=== PATIENT | male | born 1940 | race Caucasian/White ===

== ENCOUNTER 2017-08-13 15:25 | Inpatient (IN) | payer MEDICARE, OTHER ==
[~2017-08-13] VITALS: Ht 172.7 cm; Wt 82.0 kg
[~2017-08-13 15:25] MED LIST: CARB-87 PO; CARB-90 PO; HYDR-3972 PO; MULT-1179 PO; OMEP20CA10 PO; ONDA4TAB6 PO; RASA1TAB PO; ROPI1TAB2 PO
[2017-08-13] MEDS ORDERED: normal saline 1000ML IV soln IVB ONE ×2 (15:35)
[2017-08-13] MEDS ORDERED: ondansetron/PF 4mg/2ml inj IV ONE (15:35)
[2017-08-13] MEDS ORDERED: HYDROmorphone 1 mg/ml syringe IV ONE (15:35)
[2017-08-13] MEDS ORDERED: famotidine/PF 10 mg/ml inj IV ONE (15:35)
[2017-08-13] MEDS ORDERED: HYDROmorphone 1 mg/ml syringe IV PRN ×2 (15:35→20:50)
[2017-08-13 16:05] LABS: BASOPHILS % (AUTO) 0.5 % (0-1); EOSINOPHILS # (AUTO) 0.2 X10'3 (0-0.9); EOSINOPHILS % (AUTO) 2.3 % (0-6); HEMATOCRIT 46.4 % (42.0-52.0); HEMOGLOBIN 15.8 g/dl (14.0-17.9); LYMPHOCYTES # (AUTO) 1.6 X10'3 (1.1-4.8); LYMPHOCYTES % (AUTO) 23.8 % (21-51); MEAN CORPUSCULAR HEMOGLOBIN 29.7 PG (27.0-31.0); MEAN CORPUSCULAR VOLUME 87.2 FL (78-98); MEAN PLATELET VOLUME 7.9 FL (7.4-10.4); MONOCYTES # (AUTO) 0.5 X10'3 (0-0.9); NEUTROPHILS # (AUTO) 4.5 X10'3 (1.8-7.7); NEUTROPHILS % (AUTO) 66.4 % (42-75); PLATELET COUNT 211 X10'3 (140-440); RED BLOOD COUNT 5.32 X10'6 (4.70-6.10); RED CELL DISTRIBUTION WIDTH 14.4 % (11.5-14.5); WHITE BLOOD COUNT 6.8 X10'3 (4.5-11.0)
[2017-08-13 16:12] LABS: PARTIAL THROMBOPLASTIN TIME 27 SECONDS (22-32)
[2017-08-13 16:13] LABS: ALANINE AMINOTRANSFERASE 34 U/L (12-78); ALBUMIN 3.8 G/DL (3.4-5.0); ALKALINE PHOSPHATASE 106 IU/L (46-116); ANION GAP 10 (8-16); ASPARTATE AMINO TRANSFERASE 87 U/L (10-37); BILIRUBIN,TOTAL 0.9 MG/DL (0.1-1.0); BLOOD UREA NITROGEN 15 MG/DL (7-18); BUN/CREATININE RATIO 11.5 (5.4-32.0); CALCIUM 9.2 MG/DL (8.5-10.1); CHLORIDE 100 MMOL/L (99-107); GLUCOSE 109 MG/DL (70-104); LIPASE 160 U/L (73-393); POTASSIUM 3.6 MMOL/L (3.5-5.1); SODIUM 137 MMOL/L (135-145); TOTAL CARBON DIOXIDE 26.8 MMOL/L (24-32); TOTAL PROTEIN 7.7 G/DL (6.4-8.2); eGFR 54 ML/MIN
[2017-08-13 17:00] LABS: CLARITY,URINE CLEAR (Clear); COLOR,URINE YELLOW (Yellow); GLUCOSE, URINE NEGATIVE (Neg); KETONES,URINE NEGATIVE (Neg); LEUKOCYTE ESTERASE ,URINE NEGATIVE (Neg); NITRITES, URINE NEGATIVE (Neg); OCCULT BLOOD,URINE NEGATIVE (Neg); PROTEIN,URINE NEGATIVE (Neg); UROBILINOGEN,URINE 0.2 E.U/dL (0.2-1.0)
[2017-08-13 17:01] LABS: UA COLLECTION TYPE URINAL
[2017-08-13] MEDS ORDERED: nitroGLYCERIN 0.4mg/hour patch TD ONE (17:35)
[2017-08-13] MEDS ORDERED: CLON-528 PO (19:16)
[2017-08-13] MEDS ORDERED: SERT25TA PO (19:16)
[2017-08-13] MEDS ORDERED: ondansetron/PF 4mg/2ml inj IV PRN (20:50)
[2017-08-13] MEDS ORDERED: magnesium 2GM in 50ml NS 50 ML IV PRN (20:50)
[2017-08-13] MEDS ORDERED: potassium Cl 40MEQ/NS 500ml 500 ML IV PRN ×2 (20:50)
[2017-08-13] MEDS ORDERED: potassium Cl 20 mEq SR tablet PO PRN ×2 (20:50)
[2017-08-13] MEDS ORDERED: mag hydrox/Alum hydrox/simeth 30ml oral suspension PO PRN (20:50)
[2017-08-13] MEDS ORDERED: magnesium Cl slow-release 64mg tablet PO PRN (20:50)
[2017-08-13] MEDS ORDERED: magnesium 4gm in 100ml NS 100 ML IV PRN (20:50)
[2017-08-13] MEDS ORDERED: acetaminophen 325mg tablet PO PRN (20:50)
[2017-08-13] MEDS ORDERED: magnesium hydroxide 30ml (MOM) UD suspension PO PRN (20:50)
[2017-08-13] MEDS: carbidoba-levodopa 25-100mg tablet PO SCH (21:18)
[2017-08-13 21:30] VITALS: BP 111/65
[2017-08-13] MEDS: normal saline 1000ml 1,000 ML IV SCH (21:39)
[2017-08-14] VITALS: BP 119/71
[2017-08-14 06:27] LABS: BASOPHILS % (AUTO) 0.3 % (0-1); EOSINOPHILS # (AUTO) 0.2 X10'3 (0-0.9); EOSINOPHILS % (AUTO) 3.4 % (0-6); HEMATOCRIT 38.4 % (42.0-52.0); HEMOGLOBIN 13.5 g/dl (14.0-17.9); LYMPHOCYTES # (AUTO) 1.1 X10'3 (1.1-4.8); LYMPHOCYTES % (AUTO) 15.8 % (21-51); MEAN CORPUSCULAR HEMOGLOBIN 30.5 PG (27.0-31.0); MEAN CORPUSCULAR HGB CONC 35.2 % (33.0-36.5); MEAN CORPUSCULAR VOLUME 86.7 FL (78-98); MEAN PLATELET VOLUME 8.2 FL (7.4-10.4); MONOCYTES # (AUTO) 0.6 X10'3 (0-0.9); NEUTROPHILS # (AUTO) 5.1 X10'3 (1.8-7.7); NEUTROPHILS % (AUTO) 72.5 % (42-75); PLATELET COUNT 167 X10'3 (140-440); RED BLOOD COUNT 4.43 X10'6 (4.70-6.10); RED CELL DISTRIBUTION WIDTH 13.4 % (11.5-14.5)
[2017-08-14] MEDS: HYDROmorphone 1 mg/ml syringe IV PRN ×2 (06:45→19:34)
[2017-08-14] MEDS: normal saline 1000ml 1,000 ML IV SCH (06:46)
[2017-08-14 06:54] LABS: ALANINE AMINOTRANSFERASE 11 U/L (12-78); ALBUMIN 3.2 G/DL (3.4-5.0); ALBUMIN/GLOBULIN RATIO 0.9 (1.1-1.5); ALKALINE PHOSPHATASE 87 IU/L (46-116); ANION GAP 9 (8-16); ASPARTATE AMINO TRANSFERASE 39 U/L (10-37); BILIRUBIN,TOTAL 0.7 MG/DL (0.1-1.0); BLOOD UREA NITROGEN 13 MG/DL (7-18); BUN/CREATININE RATIO 10.8 (5.4-32.0); CALCIUM 8.7 MG/DL (8.5-10.1); CHLORIDE 107 MMOL/L (99-107); GLUCOSE 89 MG/DL (70-104); MAGNESIUM 1.8 MG/DL (1.5-2.4); POTASSIUM 4.1 MMOL/L (3.5-5.1); SODIUM 141 MMOL/L (135-145); TOTAL CARBON DIOXIDE 25.1 MMOL/L (24-32); TOTAL PROTEIN 6.7 G/DL (6.4-8.2); eGFR 59 ML/MIN
[2017-08-14] MEDS: carbidoba-levodopa 25-100mg tablet PO SCH ×5 (06:55→22:08)
[2017-08-14 08:00] VITALS: BP 160/84
[2017-08-14] MEDS: K and/or MAG REPLACEMENT MC SCH (08:00)
[2017-08-14] MEDS: multivitamins, therapeutics tablet PO SCH (08:00)
[2017-08-14] MEDS: sertraline 25mg tablet PO SCH (08:27)
[2017-08-14 11:00] VITALS: BP 157/91
[2017-08-14] MEDS ORDERED: NORMAL SALINE IV ONE (12:30)
[2017-08-14] MEDS ORDERED: SINCALIDE IV ONE (12:30)
[2017-08-14 18:00] VITALS: BP 119/71
[2017-08-15] VITALS: BP 148/84
[2017-08-15] MEDS: HYDROmorphone 1 mg/ml syringe IV PRN (02:17)
[2017-08-15 05:29] LABS: BASOPHILS # (AUTO) 0.1 X10'3 (0-0.2); BASOPHILS % (AUTO) 1.1 % (0-1); EOSINOPHILS # (AUTO) 0.3 X10'3 (0-0.9); EOSINOPHILS % (AUTO) 5.2 % (0-6); HEMATOCRIT 40.5 % (42.0-52.0); HEMOGLOBIN 13.7 g/dl (14.0-17.9); LYMPHOCYTES # (AUTO) 1.6 X10'3 (1.1-4.8); LYMPHOCYTES % (AUTO) 26.6 % (21-51); MEAN CORPUSCULAR HEMOGLOBIN 29.8 PG (27.0-31.0); MEAN CORPUSCULAR HGB CONC 33.8 % (33.0-36.5); MEAN CORPUSCULAR VOLUME 88.3 FL (78-98); MEAN PLATELET VOLUME 7.8 FL (7.4-10.4); MONOCYTES # (AUTO) 0.6 X10'3 (0-0.9); MONOCYTES % (AUTO) 9.7 % (2-12); NEUTROPHILS # (AUTO) 3.5 X10'3 (1.8-7.7); NEUTROPHILS % (AUTO) 57.4 % (42-75); PLATELET COUNT 169 X10'3 (140-440); RED BLOOD COUNT 4.58 X10'6 (4.70-6.10); RED CELL DISTRIBUTION WIDTH 14.4 % (11.5-14.5); WHITE BLOOD COUNT 6.1 X10'3 (4.5-11.0)
[2017-08-15] MEDS: carbidoba-levodopa 25-100mg tablet PO SCH ×3 (05:48→14:11)
[2017-08-15 06:23] LABS: ALANINE AMINOTRANSFERASE 18 U/L (12-78); ALBUMIN 3.2 G/DL (3.4-5.0); ALBUMIN/GLOBULIN RATIO 0.9 (1.1-1.5); ALKALINE PHOSPHATASE 77 IU/L (46-116); ANION GAP 10 (8-16); ASPARTATE AMINO TRANSFERASE 31 U/L (10-37); BILIRUBIN,TOTAL 0.5 MG/DL (0.1-1.0); BLOOD UREA NITROGEN 15 MG/DL (7-18); BUN/CREATININE RATIO 12.5 (5.4-32.0); CALCIUM 9.1 MG/DL (8.5-10.1); CHLORIDE 107 MMOL/L (99-107); GLUCOSE 84 MG/DL (70-104); MAGNESIUM 1.9 MG/DL (1.5-2.4); POTASSIUM 4.2 MMOL/L (3.5-5.1); SODIUM 141 MMOL/L (135-145); TOTAL CARBON DIOXIDE 23.9 MMOL/L (24-32); TOTAL PROTEIN 6.9 G/DL (6.4-8.2); eGFR 59 ML/MIN
[2017-08-15] MEDS: K and/or MAG REPLACEMENT MC SCH (07:17)
[2017-08-15 08:00] VITALS: BP 122/63
[2017-08-15] MEDS: sertraline 25mg tablet PO SCH (08:17)
[2017-08-15] MEDS: multivitamins, therapeutics tablet PO SCH (08:17)
[2017-08-15 11:36] VITALS: BP 150/90
[2017-08-15] MEDS ORDERED: iohexol 350MG/ML 100ml bottle IV ONE (13:25)
== END 2017-08-15 15:43 | disposition home health service (06) | DRG 392 ==
LOC: ER 15:26 → ED HOLD 20:47 → SUR 3N 21:15
PROVIDERS: ADMIT Internal Medicine; ATTEND Internal Medicine
PROC: CF241ZZ Tomographic (Tomo) Nuclear Medicine Imaging of Gallbladder using Technetium 99m (Tc-99m) (ICD-10-PCS; principal; 2017-08-14)
PROC: BW211ZZ Computerized Tomography (CT Scan) of Abdomen and Pelvis using Low Osmolar Contrast (ICD-10-PCS; 2017-08-15)
DX: R10.9 Unspecified abdominal pain (principal); G20 Parkinson's disease; G62.9 Polyneuropathy, unspecified; I16.1 Hypertensive emergency; K80.20 Calculus of gallbladder without cholecystitis without obstruction; N18.3 Chronic kidney disease, stage 3 (moderate); I12.9 Hypertensive chronic kidney disease with stage 1 through stage 4 chronic kidney disease, or unspecified chronic kidney disease; F32.9 Major depressive disorder, single episode, unspecified; G89.29 Other chronic pain; M54.9 Dorsalgia, unspecified; F41.9 Anxiety disorder, unspecified; G57.93 Unspecified mononeuropathy of bilateral lower limbs; K21.9 Gastro-esophageal reflux disease without esophagitis; K57.30 Diverticulosis of large intestine without perforation or abscess without bleeding; R74.0 Nonspecific elevation of levels of transaminase and lactic acid dehydrogenase [LDH]; Z90.5 Acquired absence of kidney; Z79.899 Other long term (current) drug therapy; Z87.891 Personal history of nicotine dependence; Z85.528 Personal history of other malignant neoplasm of kidney
CPT/HCPCS: 36415; 71045; 74174; 74176; 76700; 78227; 80053; 81003; 83605; 83690; 83735; 84484; 85025; 85610; 85730; 86885; 86900; 86901; 87070; 93005; 96361; 96374; 96375; 99285; A9537; J1170; J2405; J2805; J3490; J7030; Q9967

== ENCOUNTER 2018-08-23 16:06 | Emergency (ER) | payer MEDICARE, OTHER ==
[~2018-08-23] VITALS: Ht 170.2 cm; Wt 72.7 kg
[~2018-08-23 16:06] MED LIST changes: -HYDR-3972 PO; -OMEP20CA10 PO; -ONDA4TAB6 PO; -RASA1TAB PO; -ROPI1TAB2 PO; +SERT25TA PO
--- NOTE | 2018-08-23 16:20 | NUR ---
SHAMEKA VALENZUELA OBSERVED PT DURING TRIAGE
[2018-08-23 16:46] LABS: BASOPHILS % (AUTO) 0.7 % (0-1); EOSINOPHILS # (AUTO) 0.1 X10'3 (0-0.9); EOSINOPHILS % (AUTO) 2.1 % (0-6); HEMATOCRIT 45.8 % (42.0-52.0); HEMOGLOBIN 15.6 g/dl (14.0-17.9); LYMPHOCYTES # (AUTO) 1.5 X10'3 (1.1-4.8); LYMPHOCYTES % (AUTO) 22.8 % (21-51); MEAN CORPUSCULAR HEMOGLOBIN 30.8 PG (27.0-31.0); MEAN CORPUSCULAR HGB CONC 33.9 % (33.0-36.5); MEAN CORPUSCULAR VOLUME 90.8 FL (78-98); MONOCYTES # (AUTO) 0.5 X10'3 (0-0.9); MONOCYTES % (AUTO) 7.7 % (2-12); NEUTROPHILS # (AUTO) 4.4 X10'3 (1.8-7.7); NEUTROPHILS % (AUTO) 66.7 % (42-75); PLATELET COUNT 215 X10'3 (140-440); RED BLOOD COUNT 5.04 X10'6 (4.70-6.10); RED CELL DISTRIBUTION WIDTH 13.3 % (11.5-14.5); WHITE BLOOD COUNT 6.6 X10'3 (4.5-11.0)
[2018-08-23 16:55] LABS: ALANINE AMINOTRANSFERASE 10 U/L (12-78); ALBUMIN 4.1 G/DL (3.4-5.0); ALKALINE PHOSPHATASE 89 IU/L (46-116); ANION GAP 11 (8-16); ASPARTATE AMINO TRANSFERASE 21 U/L (10-37); BILIRUBIN,TOTAL 0.4 MG/DL (0.1-1.0); BLOOD UREA NITROGEN 26 MG/DL (7-18); BUN/CREATININE RATIO 17.7 (5.4-32.0); CALCIUM 9.3 MG/DL (8.5-10.1); CHLORIDE 101 MMOL/L (99-107); CREATININE 1.47 MG/DL (0.60-1.10); GLUCOSE 101 MG/DL (70-104); SODIUM 138 MMOL/L (135-145); TOTAL CARBON DIOXIDE 26.3 MMOL/L (24-32); TOTAL PROTEIN 8.2 G/DL (6.4-8.2); eGFR 47 ML/MIN
[2018-08-23 16:58] LABS: POTASSIUM 4.8 MMOL/L (3.5-5.1)
[2018-08-23 17:13] LABS: CLARITY,URINE CLEAR (Clear); COLOR,URINE YELLOW (Yellow); GLUCOSE, URINE NEGATIVE (Neg); KETONES,URINE NEGATIVE (Neg); LEUKOCYTE ESTERASE ,URINE NEGATIVE (Neg); NITRITES, URINE NEGATIVE (Neg); OCCULT BLOOD,URINE NEGATIVE (Neg); PH,URINE 7.5 (4.8-8.0); PROTEIN,URINE TRACE mg/dl (Neg); UROBILINOGEN,URINE 0.2 E.U/dL (0.2-1.0)
[2018-08-23 17:17] LABS: UA COLLECTION TYPE CLN CATCH MIDSTREAM
[2018-08-23 17:27] LABS: BACTERIA,URINE NONE SEEN /HPF (Neg); RBC,URINE NONE SEEN /HPF (0-2); SQUAMOUS EPITHELIAL CELL,UR FEW /LPF (FEW); WBC,URINE 0-4 /HPF (0-4)
[2018-08-23 17:53] VITALS: BP 190/101
== END 2018-08-23 17:55 | disposition home or self-care (01) ==
LOC: ER 16:06
DX: I10 Essential (primary) hypertension (principal); G62.9 Polyneuropathy, unspecified; G89.29 Other chronic pain; Z98.890 Other specified postprocedural states; Z79.899 Other long term (current) drug therapy
CPT/HCPCS: 36415; 80053; 81001; 85025; 99284

== ENCOUNTER 2019-05-28 08:45 | Emergency (ER) | payer MEDICARE ==
[~2019-05-28] VITALS: Ht 170.2 cm; Wt 72.0 kg
[2019-05-28 09:18] LABS: BASOPHILS # (AUTO) 0.1 X10'3 (0-0.2); BASOPHILS % (AUTO) 1.2 % (0-1); EOSINOPHILS # (AUTO) 0.2 X10'3 (0-0.9); EOSINOPHILS % (AUTO) 2.4 % (0-6); HEMATOCRIT 43.4 % (42.0-52.0); HEMOGLOBIN 15.2 g/dl (14.0-17.9); LYMPHOCYTES # (AUTO) 1.5 X10'3 (1.1-4.8); LYMPHOCYTES % (AUTO) 23.1 % (21-51); MEAN CORPUSCULAR HEMOGLOBIN 30.9 PG (27.0-31.0); MEAN CORPUSCULAR VOLUME 88.4 FL (78-98); MEAN PLATELET VOLUME 7.6 FL (7.4-10.4); MONOCYTES # (AUTO) 0.6 X10'3 (0-0.9); MONOCYTES % (AUTO) 8.8 % (2-12); NEUTROPHILS # (AUTO) 4.1 X10'3 (1.8-7.7); NEUTROPHILS % (AUTO) 64.5 % (42-75); PLATELET COUNT 203 X10'3 (140-440); RED BLOOD COUNT 4.91 X10'6 (4.70-6.10); RED CELL DISTRIBUTION WIDTH 13.3 % (11.5-14.5); WHITE BLOOD COUNT 6.4 X10'3 (4.5-11.0)
[2019-05-28] MEDS ORDERED: normal saline 1000ML IV soln IVB ONE (09:20)
[2019-05-28 09:31] LABS: PARTIAL THROMBOPLASTIN TIME 28 SECONDS (22-32)
[2019-05-28 09:33] LABS: ALANINE AMINOTRANSFERASE 11 U/L (12-78); ALBUMIN 4.2 G/DL (3.4-5.0); ALKALINE PHOSPHATASE 103 IU/L (46-116); ANION GAP 10 (8-16); ASPARTATE AMINO TRANSFERASE 24 U/L (10-37); BILIRUBIN,TOTAL 0.6 MG/DL (0.1-1.0); BLOOD UREA NITROGEN 28 MG/DL (7-18); BUN/CREATININE RATIO 19.3 (5.4-32.0); CALCIUM 9.6 MG/DL (8.5-10.1); CHLORIDE 105 MMOL/L (99-107); CREATININE 1.45 MG/DL (0.60-1.10); GLUCOSE 107 MG/DL (70-104); POTASSIUM 4.4 MMOL/L (3.5-5.1); SODIUM 140 MMOL/L (135-145); TOTAL PROTEIN 8.3 G/DL (6.4-8.2); eGFR 47 ML/MIN
[2019-05-28] MEDS ORDERED: normal saline 1000ml 1,000 ML IV ONE (09:45)
[2019-05-28] MEDS ORDERED: morphine 4 MG/ML inj SYRINge IM ONE (09:45)
[2019-05-28] MEDS: morphine 2 MG/ML inj. syringe IV PRN ×3 (09:55→10:40)
[2019-05-28] MEDS ORDERED: carbidopa/levodopa 25/100mg CR tablet PO STA (09:59)
--- NOTE | 2019-05-28 10:05 | NUR ---
Pt. transferred to CT by tech at this time.
[2019-05-28 11:00] LABS: CLARITY,URINE SLIGHTLY CLOUDY (Clear); COLOR,URINE YELLOW (Yellow); GLUCOSE, URINE NEGATIVE (Neg); KETONES,URINE NEGATIVE (Neg); LEUKOCYTE ESTERASE ,URINE NEGATIVE (Neg); NITRITES, URINE NEGATIVE (Neg); OCCULT BLOOD,URINE LARGE (Neg); PH,URINE 7.5 (4.8-8.0); PROTEIN,URINE NEGATIVE (Neg); UROBILINOGEN,URINE 0.2 E.U/dL (0.2-1.0)
[2019-05-28] MEDS ORDERED: diazepam inj 5 MG/ML inj. IV ONE (11:05)
[2019-05-28] MEDS ORDERED: ketorolac tromethamine 15mg/ml inj. IV ONE (11:05)
[2019-05-28] MEDS ORDERED: LIDOcaine 2% 10ml TOPICAL JELLY (Urojet) MM ONE (11:05)
[2019-05-28 11:06] LABS: UA COLLECTION TYPE VOIDED
[2019-05-28 11:11] LABS: WBC,URINE 0-4 /HPF (0-4)
[2019-05-28 11:12] LABS: BACTERIA,URINE NONE SEEN /HPF (Neg); MUCUS STRANDS NONE SEEN /LPF (Neg); RBC,URINE TNTC /HPF (0-2); SQUAMOUS EPITHELIAL CELL,UR FEW /LPF (FEW)
[2019-05-28] MEDS ORDERED: IBUP-1985 PO (11:38)
[2019-05-28] MEDS ORDERED: FLO0.4C PO (11:38)
[2019-05-28] MEDS ORDERED: HYDR-3965 PO (11:38)
[2019-05-28 12:30] VITALS: BP 163/111
--- NOTE | 2019-05-28 12:38 | NUR ---
Spoke with BIANCA Nolan regarding pt's elevated SBP. Per provider, proceed to discharge pt and inform them to follow up with primary care.
== END 2019-05-28 13:14 | disposition home or self-care (01) ==
LOC: ER 08:45
DX: R33.9 Retention of urine, unspecified (principal); K59.00 Constipation, unspecified; N20.0 Calculus of kidney; G62.9 Polyneuropathy, unspecified; G89.29 Other chronic pain; Z98.890 Other specified postprocedural states; Z79.899 Other long term (current) drug therapy
CPT/HCPCS: 36415; 71045; 74176; 80053; 81001; 84484; 85025; 85610; 85730; 93005; 96374; 96375; 96376; 99284; J1885; J2270; J3360; J7040

== ENCOUNTER 2019-06-04 20:08 | Inpatient (IN) | payer MEDICARE ==
[~2019-06-04] VITALS: Ht 170.2 cm; Wt 73.8 kg
[~2019-06-04 20:08] MED LIST changes: +FLO0.4C PO; +HYDR-3965 PO; +IBUP-1985 PO
[2019-06-04] MEDS ORDERED: normal saline 1000ML IV soln IVB ONE ×2 (20:40)
[2019-06-04 20:42] LABS: CLARITY,URINE CLOUDY (Clear); COLOR,URINE YELLOW (Yellow); GLUCOSE, URINE NEGATIVE (Neg); KETONES,URINE TRACE mg/dl (Neg); LEUKOCYTE ESTERASE ,URINE LARGE (Neg); NITRITES, URINE POSITIVE (Neg); OCCULT BLOOD,URINE LARGE (Neg); PROTEIN,URINE 30 mg/dl (Neg)
[2019-06-04 20:43] LABS: UA COLLECTION TYPE CLN CATCH MIDSTREAM
[2019-06-04] MEDS ORDERED: CefTRIAXone 2gm/D5W 50ml 50 ML IV ONE (20:55)
[2019-06-04 20:58] LABS: BACTERIA,URINE 3+ /HPF (Neg); HYALINE CASTS 0-3 /LPF (NEGATIVE); MUCUS STRANDS FEW /LPF (Neg); SQUAMOUS EPITHELIAL CELL,UR FEW /LPF (FEW); WBC,URINE TNTC /HPF (0-4)
[2019-06-04 21:11] LABS: ALANINE AMINOTRANSFERASE 6 U/L (12-78); ALBUMIN/GLOBULIN RATIO 0.8 (1.1-1.5); ALKALINE PHOSPHATASE 76 IU/L (46-116); ANION GAP 8 (8-16); ASPARTATE AMINO TRANSFERASE 50 U/L (10-37); BILIRUBIN,TOTAL 0.9 MG/DL (0.1-1.0); BLOOD UREA NITROGEN 43 MG/DL (7-18); BUN/CREATININE RATIO 18.9 (5.4-32.0); CALCIUM 8.8 MG/DL (8.5-10.1); CHLORIDE 99 MMOL/L (99-107); CREATININE 2.28 MG/DL (0.60-1.10); GLUCOSE 134 MG/DL (70-104); LIPASE < 50 U/L (73-393); POTASSIUM 4.4 MMOL/L (3.5-5.1); SODIUM 134 MMOL/L (135-145); TOTAL CARBON DIOXIDE 27.2 MMOL/L (24-32); TOTAL PROTEIN 6.8 G/DL (6.4-8.2); eGFR 28 ML/MIN
[2019-06-04 21:12] LABS: BASOPHILS % (AUTO) 0.1 % (0-1); EOSINOPHILS % (AUTO) 0.4 % (0-6); HEMATOCRIT 33.9 % (42.0-52.0); HEMOGLOBIN 11.6 g/dl (14.0-17.9); LYMPHOCYTES # (AUTO) 0.4 X10'3 (1.1-4.8); LYMPHOCYTES % (AUTO) 3.3 % (21-51); MEAN CORPUSCULAR HEMOGLOBIN 30.8 PG (27.0-31.0); MEAN CORPUSCULAR HGB CONC 34.2 g/dL (33.0-36.5); MEAN PLATELET VOLUME 7.9 FL (7.4-10.4); MONOCYTES # (AUTO) 1.1 X10'3 (0-0.9); MONOCYTES % (AUTO) 9.4 % (2-12); NEUTROPHILS # (AUTO) 10.3 X10'3 (1.8-7.7); NEUTROPHILS % (AUTO) 86.8 % (42-75); PLATELET COUNT 120 X10'3 (140-440); RED BLOOD COUNT 3.77 X10'6 (4.70-6.10); RED CELL DISTRIBUTION WIDTH 13.3 % (11.5-14.5); WHITE BLOOD COUNT 11.8 X10'3 (4.5-11.0)
[2019-06-04] MEDS ORDERED: ondansetron/PF 4mg/2ml inj IV ONE (21:30)
[2019-06-04] MEDS ORDERED: morphine 4 MG/ML inj SYRINge IV PRN (21:30)
[2019-06-04] MEDS ORDERED: ondansetron/PF 4mg/2ml inj IV PRN (22:45)
[2019-06-04] MEDS ORDERED: bisacodyl 10mg suppository rectal RC PRN (22:45)
[2019-06-04] MEDS ORDERED: pantoprazole 40 MG vial IV ONE (22:55)
[2019-06-04] MEDS ORDERED: OXYB5TAB16 PO (23:11)
[2019-06-04] MEDS ORDERED: IBUP-1985 PO (23:11)
[2019-06-04] MEDS ORDERED: HYDR-3968 PO (23:11)
[2019-06-04] MEDS ORDERED: FLO0.4C PO (23:11)
[2019-06-04] MEDS: normal saline 1000ml 1,000 ML IV SCH (23:14)
[2019-06-05 00:25] VITALS: BP 119/61
[2019-06-05] MEDS ORDERED: AMA100C PO (00:25)
[2019-06-05] MEDS: carbidopa/levodopa 50/200mg CR tablet PO SCH ×2 (02:24→20:50)
[2019-06-05] MEDS: tamsulosin 0.4mg capsule PO SCH ×2 (02:24→20:46)
[2019-06-05] MEDS: normal saline 1000ml 1,000 ML IV SCH ×2 (04:43→13:40)
[2019-06-05 05:16] LABS: ALBUMIN 2.6 G/DL (3.4-5.0); ANION GAP 7 (8-16); BLOOD UREA NITROGEN 39 MG/DL (7-18); BUN/CREATININE RATIO 19.2 (5.4-32.0); CALCIUM 8.5 MG/DL (8.5-10.1); CHLORIDE 104 MMOL/L (99-107); CREATININE 2.03 MG/DL (0.60-1.10); GLUCOSE 116 MG/DL (70-104); POTASSIUM 4.1 MMOL/L (3.5-5.1); SODIUM 135 MMOL/L (135-145); TOTAL CARBON DIOXIDE 24.4 MMOL/L (24-32); eGFR 32 ML/MIN
[2019-06-05 05:26] LABS: BASOPHILS % (AUTO) 0 % (0-1); EOSINOPHILS # (AUTO) 0.1 X10'3 (0-0.9); EOSINOPHILS % (AUTO) 0.5 % (0-6); HEMATOCRIT 29.7 % (42.0-52.0); HEMOGLOBIN 10.3 g/dl (14.0-17.9); LYMPHOCYTES # (AUTO) 0.4 X10'3 (1.1-4.8); LYMPHOCYTES % (AUTO) 3.8 % (21-51); MEAN CORPUSCULAR HEMOGLOBIN 31.3 PG (27.0-31.0); MEAN CORPUSCULAR HGB CONC 34.8 g/dL (33.0-36.5); MEAN CORPUSCULAR VOLUME 90.1 FL (78-98); MEAN PLATELET VOLUME 8.2 FL (7.4-10.4); MONOCYTES # (AUTO) 1.4 X10'3 (0-0.9); MONOCYTES % (AUTO) 12.3 % (2-12); NEUTROPHILS # (AUTO) 9.4 X10'3 (1.8-7.7); NEUTROPHILS % (AUTO) 83.4 % (42-75); PLATELET COUNT 106 X10'3 (140-440); RED BLOOD COUNT 3.29 X10'6 (4.70-6.10); WHITE BLOOD COUNT 11.3 X10'3 (4.5-11.0)
--- NOTE | 2019-06-05 06:26 | NUR ---
Patient in room [facility]. I have received report from MCIHAEL Elliott and had the opportunity to ask questions and assume patient care.
[2019-06-05 07:00] VITALS: BP 129/70
[2019-06-05] MEDS: CefTRIAXone/D5W-Rocephin 1gm 50 ML IV SCH (08:12)
[2019-06-05] MEDS: carbidoba-levodopa 25-100mg tablet PO SCH ×3 (08:21→17:39)
[2019-06-05] MEDS: amantadine 100 MG capsule PO SCH ×2 (08:21→20:48)
[2019-06-05] MEDS: oxybutynin 5mg tablet PO SCH ×3 (08:21→20:49)
[2019-06-05] MEDS: docusate sod 100mg capsule PO SCH ×2 (08:21→20:53)
[2019-06-05 11:00] VITALS: BP 151/81
--- NOTE | 2019-06-05 13:40 | NUR ---
PATIENT'S FAMILY EXPRESSED CONCERN THAT THEY THOUGHT THE PATIENT HAD A STROKE DUE TO SLURRED SPEECH, TOLD MY CHARGE NURSE. THE CHARGE NURSE DID A NEURO CHECK WHICH WAS NEGATIVE. I PAGED DR. SORENSEN, HE DID NOT THINK THE PATIENT HAD A STROKE, FEELS THE SPEECH DIFFERENCE COULD BE FROM UTI. WILL CONTINUE TO MONITOR
[2019-06-05] MEDS: morphine 2 MG/ML inj. syringe IV PRN ×2 (15:22→21:05)
[2019-06-05 18:00] VITALS: BP 140/72
--- NOTE | 2019-06-05 18:31 | NUR ---
Problems reprioritized. Patient report given, questions answered & plan of care reviewed with MICHAEL Ortega.
--- NOTE | 2019-06-05 18:49 | NUR ---
Patient in room [facility]. I have received report from MICHAEL Benedict and had the opportunity to ask questions and assume patient care.
[2019-06-05] MEDS: nystatin 500,000 unit/5ML UD oral suspension PO SCH (20:53)
[2019-06-05] MEDS: lactobacillus rhamnosus 10,000 MMU CELLS/CAPSULE PO SCH (20:55)
[2019-06-06] MEDS: normal saline 1000ml 1,000 ML IV SCH ×3 (00:15→23:36)
[2019-06-06 00:30] VITALS: BP 142/76
[2019-06-06] MEDS ORDERED: LORazepam 2 mg/ml vial IM ONE (01:05)
[2019-06-06] MEDS ORDERED: LORazepam 2 mg/ml vial IV ONE (01:15)
--- NOTE | 2019-06-06 06:20 | NUR ---
Problems reprioritized. Patient report given, questions answered & plan of care reviewed with MICHAEL Marinelli.
[2019-06-06 06:24] LABS: ALBUMIN 2.5 G/DL (3.4-5.0); ANION GAP 9 (8-16); BLOOD UREA NITROGEN 27 MG/DL (7-18); BUN/CREATININE RATIO 20.3 (5.4-32.0); CALCIUM 8.6 MG/DL (8.5-10.1); CHLORIDE 107 MMOL/L (99-107); CREATININE 1.33 MG/DL (0.60-1.10); GLUCOSE 94 MG/DL (70-104); POTASSIUM 3.7 MMOL/L (3.5-5.1); SODIUM 139 MMOL/L (135-145); TOTAL CARBON DIOXIDE 22.9 MMOL/L (24-32); eGFR 52 ML/MIN
--- NOTE | 2019-06-06 06:30 | NUR ---
Patient in room [facility]. I have received report from Jordan RODRIGUEZ and had the opportunity to ask questions and assume patient care.
[2019-06-06 06:32] LABS: % IRON SATURATION 11 % (11-46); IRON 16 UG/DL (53-167); TOTAL IRON BINDING CAPACITY 147 UG/DL (259-388)
[2019-06-06 06:39] LABS: BASOPHILS % (AUTO) 0.1 % (0-1); EOSINOPHILS # (AUTO) 0.1 X10'3 (0-0.9); EOSINOPHILS % (AUTO) 1.2 % (0-6); HEMATOCRIT 28.1 % (42.0-52.0); HEMOGLOBIN 9.8 g/dl (14.0-17.9); LYMPHOCYTES # (AUTO) 0.5 X10'3 (1.1-4.8); LYMPHOCYTES % (AUTO) 5.8 % (21-51); MEAN CORPUSCULAR HEMOGLOBIN 31.3 PG (27.0-31.0); MEAN CORPUSCULAR VOLUME 89.6 FL (78-98); MEAN PLATELET VOLUME 8.2 FL (7.4-10.4); MONOCYTES # (AUTO) 0.9 X10'3 (0-0.9); MONOCYTES % (AUTO) 10.3 % (2-12); NEUTROPHILS # (AUTO) 7.4 X10'3 (1.8-7.7); NEUTROPHILS % (AUTO) 82.6 % (42-75); PLATELET COUNT 121 X10'3 (140-440); RED BLOOD COUNT 3.14 X10'6 (4.70-6.10); RED CELL DISTRIBUTION WIDTH 12.9 % (11.5-14.5); WHITE BLOOD COUNT 8.9 X10'3 (4.5-11.0)
[2019-06-06 07:00] VITALS: BP 143/85
[2019-06-06] MEDS: nystatin 500,000 unit/5ML UD oral suspension PO SCH ×3 (08:47→20:43)
[2019-06-06] MEDS: amantadine 100 MG capsule PO SCH ×2 (08:47→20:34)
[2019-06-06] MEDS: oxybutynin 5mg tablet PO SCH ×3 (08:47→20:34)
[2019-06-06] MEDS: lactobacillus rhamnosus 10,000 MMU CELLS/CAPSULE PO SCH ×2 (08:47→20:32)
[2019-06-06] MEDS: carbidoba-levodopa 25-100mg tablet PO SCH ×3 (08:47→16:10)
[2019-06-06] MEDS: CefTRIAXone/D5W-Rocephin 1gm 50 ML IV SCH (08:47)
[2019-06-06] MEDS: docusate sod 100mg capsule PO SCH ×2 (08:47→20:33)
[2019-06-06] MEDS: morphine 2 MG/ML inj. syringe IV PRN ×2 (10:09→16:13)
[2019-06-06 11:00] VITALS: BP 164/86
[2019-06-06] MEDS: bisacodyl 10mg suppository rectal RC SCH (17:59)
[2019-06-06] MEDS: iron sucrose complex injection 200 MG in normal saline 100ml IV soln 100 ML IV SCH (17:59)
[2019-06-06 18:00] VITALS: BP 141/71
--- NOTE | 2019-06-06 18:00 | NUR ---
Re checked patients temp 1930 axillary it was 99.4. Addendum: 06/06/19 at 2320 by Jordan Fernandez RN Amended: Links added.
--- NOTE | 2019-06-06 18:33 | NUR ---
Patient in room [facility]. I have received report from MICHAEL Marinelli and had the opportunity to ask questions and assume patient care. I spoke with and daughter about plan of care. They are happy with the care that has been provided during his stay.
--- NOTE | 2019-06-06 18:47 | NUR ---
Problems reprioritized. Patient report given, questions answered & plan of care reviewed with Jordan RODRIGUEZ.
[2019-06-06] MEDS: carbidopa/levodopa 50/200mg CR tablet PO SCH (20:40)
[2019-06-06] MEDS: tamsulosin 0.4mg capsule PO SCH (20:42)
--- NOTE | 2019-06-06 23:35 | NUR ---
Tech reported axillary temp of 100.2 . Hospitalist was called and there were not any new orders given. Will continue to monitor temperature during this shift. Patient is resting comfrtably, the rest of his vital signs are within normal limits.
--- NOTE | 2019-06-07 04:24 | NUR ---
Patients daughter called last night and informed me that last Dr Hayden had started the patient on Ditropane. Thursday he was not his normal self. He had confession, flat affect, and was not able to drink, or get around like he usually does. She was wondering if the medication could have something to do with his decline. I read up on the medication and it does say that the Dr needs to be aware if patient has Parkinson disease, or kidney problems which he does. His Dr was aware per the daughter. It also says can case confusion in the elderly. I informed our charge nurse and will pass it on to the day time nurse so that it can be passed on to the day time hospitalist. Addendum: 06/07/19 at 0431 by Jordan Fernandez RN Patient had confusion
[2019-06-07 05:03] LABS: BASOPHILS % (AUTO) 0.2 % (0-1); EOSINOPHILS # (AUTO) 0.2 X10'3 (0-0.9); EOSINOPHILS % (AUTO) 2.2 % (0-6); HEMATOCRIT 28.9 % (42.0-52.0); HEMOGLOBIN 10.3 g/dl (14.0-17.9); LYMPHOCYTES # (AUTO) 0.6 X10'3 (1.1-4.8); LYMPHOCYTES % (AUTO) 7.4 % (21-51); MEAN CORPUSCULAR HEMOGLOBIN 31.4 PG (27.0-31.0); MEAN CORPUSCULAR HGB CONC 35.5 g/dL (33.0-36.5); MEAN CORPUSCULAR VOLUME 88.5 FL (78-98); MEAN PLATELET VOLUME 7.8 FL (7.4-10.4); MONOCYTES % (AUTO) 12.3 % (2-12); NEUTROPHILS # (AUTO) 6.3 X10'3 (1.8-7.7); NEUTROPHILS % (AUTO) 77.9 % (42-75); PLATELET COUNT 143 X10'3 (140-440); RED BLOOD COUNT 3.27 X10'6 (4.70-6.10); RED CELL DISTRIBUTION WIDTH 13.1 % (11.5-14.5); WHITE BLOOD COUNT 8.1 X10'3 (4.5-11.0)
[2019-06-07 05:22] LABS: ALBUMIN 2.4 G/DL (3.4-5.0); ANION GAP 9 (8-16); BLOOD UREA NITROGEN 18 MG/DL (7-18); BUN/CREATININE RATIO 16.5 (5.4-32.0); CALCIUM 8.4 MG/DL (8.5-10.1); CHLORIDE 108 MMOL/L (99-107); CREATININE 1.09 MG/DL (0.60-1.10); GLUCOSE 88 MG/DL (70-104); POTASSIUM 3.5 MMOL/L (3.5-5.1); SODIUM 141 MMOL/L (135-145); TOTAL CARBON DIOXIDE 23.7 MMOL/L (24-32); eGFR 66 ML/MIN
--- NOTE | 2019-06-07 06:30 | NUR ---
Patient in room [facility]. I have received report from Jordan RODRIGUEZ and had the opportunity to ask questions and assume patient care.
--- NOTE | 2019-06-07 06:34 | NUR ---
Problems reprioritized. Patient report given, questions answered & plan of care reviewed with MICHAEL Marinelli.
--- NOTE | 2019-06-07 06:46 | NUR ---
Patient in room [facility]. I have received report from Yves and had the opportunity to ask questions and assume patient care.
[2019-06-07] MEDS: oxybutynin 5mg tablet PO SCH ×2 (07:31→13:31)
[2019-06-07] MEDS: amantadine 100 MG capsule PO SCH (07:31)
[2019-06-07] MEDS: carbidoba-levodopa 25-100mg tablet PO SCH ×3 (07:31→16:28)
[2019-06-07] MEDS: lactobacillus rhamnosus 10,000 MMU CELLS/CAPSULE PO SCH (07:31)
[2019-06-07] MEDS: nystatin 500,000 unit/5ML UD oral suspension PO SCH ×2 (07:31→13:31)
[2019-06-07] MEDS: docusate sod 100mg capsule PO SCH (07:31)
[2019-06-07 07:37] VITALS: BP 165/80
[2019-06-07] MEDS: CefTRIAXone/D5W-Rocephin 1gm 50 ML IV SCH (07:59)
--- NOTE | 2019-06-07 09:20 | NUR ---
Unable to assess pupils. Patient closed eyes to light. Addendum: 06/07/19 at 0922 by Chavez [place] Amended: Links added.
[2019-06-07] MEDS: morphine 2 MG/ML inj. syringe IV PRN (09:29)
[2019-06-07] MEDS: normal saline 1000ml 1,000 ML IV SCH (09:32)
--- NOTE | 2019-06-07 10:00 | NUR ---
Dr. Ellison notified of patients improvement, speech therapy and family state he is better today. He was able to tell me how old he is and what month it is. Order received to initiate Physical therapy.
--- NOTE | 2019-06-07 10:31 | NUR ---
Student Medication Administration: For this medication-pass time frame, all medication were reviewed, dispensed, administered and documented per hospital policy by Chavez associate of science in nursing.
--- NOTE | 2019-06-07 10:31 | NUR ---
Student documentation: I have reviewed and agree with all interventions, assessments performed and documented by Chavez, nursing project coordinator.
[2019-06-07] MEDS: bisacodyl 10mg suppository rectal RC SCH (10:35)
[2019-06-07] MEDS: iron sucrose complex injection 200 MG in normal saline 100ml IV soln 100 ML IV SCH (10:35)
[2019-06-07 11:12] VITALS: BP 182/93
--- NOTE | 2019-06-07 12:05 | NUR ---
Problems reprioritized. Patient report given, questions answered & plan of care reviewed with Yves.
--- NOTE | 2019-06-07 17:20 | NUR ---
Patient report called to [facility] and medical transport picke up patient at [phone]
== END 2019-06-07 17:23 | DRG 444 ==
LOC: ER 20:09 → ED HOLD 21:28 → SUR 3N 06-05 00:09
PROVIDERS: ADMIT Internal Medicine; ATTEND Internal Medicine
DX: K80.20 Calculus of gallbladder without cholecystitis without obstruction (principal); G93.41 Metabolic encephalopathy; N17.0 Acute kidney failure with tubular necrosis; N39.0 Urinary tract infection, site not specified; J90 Pleural effusion, not elsewhere classified; J98.11 Atelectasis; B37.0 Candidal stomatitis; N18.4 Chronic kidney disease, stage 4 (severe); N20.0 Calculus of kidney; Z87.442 Personal history of urinary calculi; G20 Parkinson's disease; Z90.5 Acquired absence of kidney; N40.0 Benign prostatic hyperplasia without lower urinary tract symptoms; D50.9 Iron deficiency anemia, unspecified; K59.00 Constipation, unspecified; N13.9 Obstructive and reflux uropathy, unspecified
CPT/HCPCS: 36415; 70450; 70544; 70551; 74018; 74176; 76700; 80048; 80053; 81001; 82948; 83540; 83550; 83605; 83690; 85025; 87040; 87077; 87081; 87088; 87186; 92508; 92616; 93306; 93880; 97116; 97161; 97530; 99285; C9113; G0378; J0696; J1756; J2060; J2270; J2405; J7030

== ENCOUNTER 2019-07-26 14:54 | Emergency (ER) | payer MEDICARE ==
[~2019-07-26] VITALS: Ht 172.7 cm; Wt 71.0 kg
[~2019-07-26 14:54] MED LIST changes: +AMA100C PO; -HYDR-3965 PO; +HYDR-3968 PO; +OXYB5TAB16 PO; -SERT25TA PO
--- NOTE | 2019-07-26 16:27 | NUR ---
Assisting primary RN
[2019-07-26] MEDS ORDERED: carbidoba-levodopa 25-100mg tablet PO SCH (17:15)
[2019-07-26] MEDS ORDERED: LIDOcaine 2% 10ml TOPICAL JELLY (Urojet) MM ONE (18:25)
[2019-07-26 18:44] LABS: BASOPHILS # (AUTO) 0.1 X10'3 (0-0.2); BASOPHILS % (AUTO) 1.3 % (0-1); EOSINOPHILS # (AUTO) 0.2 X10'3 (0-0.9); EOSINOPHILS % (AUTO) 2.8 % (0-6); HEMATOCRIT 40.1 % (42.0-52.0); HEMOGLOBIN 13.7 g/dl (14.0-17.9); LYMPHOCYTES # (AUTO) 1.5 X10'3 (1.1-4.8); LYMPHOCYTES % (AUTO) 22.3 % (21-51); MEAN CORPUSCULAR HEMOGLOBIN 30.8 PG (27.0-31.0); MEAN CORPUSCULAR HGB CONC 34.2 g/dL (33.0-36.5); MEAN CORPUSCULAR VOLUME 89.9 FL (78-98); MEAN PLATELET VOLUME 7.8 FL (7.4-10.4); MONOCYTES # (AUTO) 0.6 X10'3 (0-0.9); MONOCYTES % (AUTO) 8.4 % (2-12); NEUTROPHILS # (AUTO) 4.3 X10'3 (1.8-7.7); NEUTROPHILS % (AUTO) 65.2 % (42-75); PLATELET COUNT 197 X10'3 (140-440); RED BLOOD COUNT 4.46 X10'6 (4.70-6.10); WHITE BLOOD COUNT 6.6 X10'3 (4.5-11.0)
[2019-07-26 18:58] LABS: ALANINE AMINOTRANSFERASE 12 U/L (12-78); ALBUMIN 3.9 G/DL (3.4-5.0); ALBUMIN/GLOBULIN RATIO 0.9 (1.1-1.5); ALKALINE PHOSPHATASE 95 IU/L (46-116); ANION GAP 11 (8-16); ASPARTATE AMINO TRANSFERASE 15 U/L (10-37); BILIRUBIN,TOTAL 0.5 MG/DL (0.1-1.0); BLOOD UREA NITROGEN 40 MG/DL (7-18); BUN/CREATININE RATIO 19.8 (5.4-32.0); CALCIUM 9.5 MG/DL (8.5-10.1); CHLORIDE 105 MMOL/L (99-107); CREATININE 2.02 MG/DL (0.60-1.10); GLUCOSE 87 MG/DL (70-104); POTASSIUM 4.3 MMOL/L (3.5-5.1); SODIUM 141 MMOL/L (135-145); TOTAL CARBON DIOXIDE 25.1 MMOL/L (24-32); TOTAL PROTEIN 8.1 G/DL (6.4-8.2); eGFR 32 ML/MIN
[2019-07-26 19:18] LABS: CLARITY,URINE CLOUDY (Clear); COLOR,URINE RED (Yellow); GLUCOSE, URINE NEGATIVE (Neg); KETONES,URINE NEGATIVE (Neg); LEUKOCYTE ESTERASE ,URINE LARGE (Neg); NITRITES, URINE NEGATIVE (Neg); OCCULT BLOOD,URINE LARGE (Neg); PH,URINE 6.5 (4.8-8.0); PROTEIN,URINE 30 mg/dl (Neg); UROBILINOGEN,URINE 0.2 E.U/dL (0.2-1.0)
[2019-07-26] MEDS ORDERED: normal saline 1000ML IV soln IVB ONE (19:20)
[2019-07-26 19:25] LABS: UA COLLECTION TYPE FOLEY CATH
[2019-07-26 19:29] LABS: BACTERIA,URINE FEW /HPF (Neg); RBC,URINE TNTC /HPF (0-2); SQUAMOUS EPITHELIAL CELL,UR FEW /LPF (FEW)
[2019-07-26] MEDS ORDERED: CefTRIAXone/D5W-Rocephin 1gm 50 ML IV ONE (19:35)
[2019-07-26] MEDS ORDERED: HYDROcodone/acetaminophen 10/325mg tab PO ONE (19:40)
--- NOTE | 2019-07-26 19:41 | NUR ---
per PA ok for pt to eat. Pt reports hunger, sandwich and apple sauce provided and food set up for pt
--- NOTE | 2019-07-26 21:10 | NUR ---
Back from CT scan
[2019-07-26 21:16] VITALS: BP 187/96
[2019-07-26] MEDS ORDERED: HYDR-4383 PO (21:46)
[2019-07-26] MEDS ORDERED: CEPH250T PO (21:46)
== END 2019-07-26 22:12 | disposition home or self-care (01) ==
LOC: ER 14:55
DX: S22.088A Other fracture of T11-T12 vertebra, initial encounter for closed fracture (principal); N39.0 Urinary tract infection, site not specified; R53.1 Weakness; G20 Parkinson's disease; G62.9 Polyneuropathy, unspecified; G89.29 Other chronic pain; I10 Essential (primary) hypertension; Z87.442 Personal history of urinary calculi; Z98.890 Other specified postprocedural states; Z90.89 Acquired absence of other organs; Z79.899 Other long term (current) drug therapy; W18.30XA Fall on same level, unspecified, initial encounter; Y93.89 Activity, other specified; Y92.89 Other specified places as the place of occurrence of the external cause; Y99.9 Unspecified external cause status
CPT/HCPCS: 36415; 72100; 73502; 74176; 80053; 81001; 85025; 96365; 99284; J0696; J7030

== ENCOUNTER 2019-08-12 08:59 | Emergency (ER) | payer MEDICARE ==
[~2019-08-12] VITALS: Ht 172.7 cm; Wt 72.7 kg
[~2019-08-12 08:59] MED LIST changes: +HYDR-4383 PO
[2019-08-12] MEDS ORDERED: CefTRIAXone 2gm/D5W 50ml 50 ML IV ONE (09:25)
[2019-08-12] MEDS ORDERED: normal saline 1000ML IV soln IVB ONE (09:25)
[2019-08-12 10:07] LABS: BASOPHILS % (AUTO) 0.6 % (0-1); EOSINOPHILS # (AUTO) 0.2 X10'3 (0-0.9); EOSINOPHILS % (AUTO) 2.5 % (0-6); HEMATOCRIT 39.8 % (42.0-52.0); HEMOGLOBIN 13.6 g/dl (14.0-17.9); LYMPHOCYTES # (AUTO) 1.3 X10'3 (1.1-4.8); LYMPHOCYTES % (AUTO) 17.6 % (21-51); MEAN CORPUSCULAR HGB CONC 34.1 g/dL (33.0-36.5); MEAN CORPUSCULAR VOLUME 87.9 FL (78-98); MEAN PLATELET VOLUME 7.8 FL (7.4-10.4); MONOCYTES # (AUTO) 0.5 X10'3 (0-0.9); MONOCYTES % (AUTO) 6.9 % (2-12); NEUTROPHILS # (AUTO) 5.5 X10'3 (1.8-7.7); NEUTROPHILS % (AUTO) 72.4 % (42-75); PLATELET COUNT 240 X10'3 (140-440); RED BLOOD COUNT 4.53 X10'6 (4.70-6.10); RED CELL DISTRIBUTION WIDTH 14.1 % (11.5-14.5); WHITE BLOOD COUNT 7.6 X10'3 (4.5-11.0)
[2019-08-12 10:19] LABS: PARTIAL THROMBOPLASTIN TIME 28 SECONDS (22-32)
[2019-08-12 10:20] LABS: ALANINE AMINOTRANSFERASE 11 U/L (12-78); ALBUMIN 3.7 G/DL (3.4-5.0); ALBUMIN/GLOBULIN RATIO 0.9 (1.1-1.5); ALKALINE PHOSPHATASE 151 IU/L (46-116); ANION GAP 5 (8-16); ASPARTATE AMINO TRANSFERASE 15 U/L (10-37); BILIRUBIN,TOTAL 0.4 MG/DL (0.1-1.0); BLOOD UREA NITROGEN 34 MG/DL (7-18); CALCIUM 9.3 MG/DL (8.5-10.1); CHLORIDE 104 MMOL/L (99-107); CREATININE 1.48 MG/DL (0.60-1.10); GLUCOSE 97 MG/DL (70-104); MAGNESIUM 2.1 MG/DL (1.5-2.4); POTASSIUM 4.7 MMOL/L (3.5-5.1); SODIUM 137 MMOL/L (135-145); TOTAL CARBON DIOXIDE 27.6 MMOL/L (24-32); TOTAL PROTEIN 7.6 G/DL (6.4-8.2); eGFR 46 ML/MIN
--- NOTE | 2019-08-12 10:59 | NUR ---
URINE SENT FROM [facility] THAT WAS PLACED HERE ON 07/26/[address] GONG, KNOWN UTI: TO CHANGE CATHETER AT END OF MONTH
--- NOTE | 2019-08-12 11:02 | NUR ---
DR VAZQUEZ INFORMED OF BLOOD PRESSURE AND PRESISTENT BACK PAIN
[2019-08-12 11:22] LABS: CLARITY,URINE CLOUDY (Clear); COLOR,URINE STRAW (Yellow); GLUCOSE, URINE NEGATIVE (Neg); KETONES,URINE NEGATIVE (Neg); LEUKOCYTE ESTERASE ,URINE LARGE (Neg); NITRITES, URINE POSITIVE (Neg); OCCULT BLOOD,URINE MODERATE (Neg); PROTEIN,URINE NEGATIVE (Neg); UROBILINOGEN,URINE 0.2 E.U/dL (0.2-1.0)
[2019-08-12 11:23] LABS: UA COLLECTION TYPE FOLEY CATH
[2019-08-12 11:27] LABS: BACTERIA,URINE 1+ /HPF (Neg); MUCUS STRANDS NONE SEEN /LPF (Neg); SQUAMOUS EPITHELIAL CELL,UR NONE SEEN /LPF (FEW); WBC,URINE TNTC /HPF (0-4)
[2019-08-12 11:28] LABS: CAL OXALATE CRYSTALS FEW /HPF (NEGATIVE); WBC CLUMPS,URINE MANY /HPF (NEGATIVE)
[2019-08-12 12:00] VITALS: BP 168/100
== END 2019-08-12 12:43 | disposition home or self-care (01) ==
LOC: ER 09:00
DX: N39.0 Urinary tract infection, site not specified (principal); K80.20 Calculus of gallbladder without cholecystitis without obstruction; G62.9 Polyneuropathy, unspecified; G89.29 Other chronic pain; R79.1 Abnormal coagulation profile; Z98.890 Other specified postprocedural states; Z79.899 Other long term (current) drug therapy
CPT/HCPCS: 36415; 70450; 71045; 74176; 76700; 80053; 81001; 83605; 83735; 84145; 85025; 85610; 85730; 87040; 87077; 87088; 87186; 93005; 96365; 99284; J0696; J7040